=== PATIENT | male | born 1995 | race Caucasian/White ===

== ENCOUNTER 2019-08-17 20:11 | Emergency (ER) | payer MEDICAID ==
[~2019-08-17] VITALS: Ht 175.3 cm; Wt 105.0 kg
[2019-08-17] MEDS ORDERED: IBUPROFEN 800MG TABLET PO ONE (21:45)
[2019-08-17 21:52] VITALS: BP 154/96
== END 2019-08-17 22:00 | disposition home or self-care (01) ==
LOC: ER 20:11
DX: J02.9 Acute pharyngitis, unspecified (principal); R05 Cough
CPT/HCPCS: 99283